=== PATIENT | female | born 1970 | race Caucasian/White ===

== ENCOUNTER 2017-10-19 14:52 | Outpatient (CLI) | payer OTHER | END 2017-10-19 15:02 | disposition home or self-care (01) | LOC: MAMO-SONO 14:52 | DX: N60.11 Diffuse cystic mastopathy of right breast (principal); N60.12 Diffuse cystic mastopathy of left breast; Z12.31 Encounter for screening mammogram for malignant neoplasm of breast ==

== ENCOUNTER 2018-10-24 14:52 | Outpatient (CLI) | payer OTHER | END 2018-10-24 14:54 | disposition home or self-care (01) | LOC: MAMO-SONO 14:52 | DX: N60.11 Diffuse cystic mastopathy of right breast (principal); N60.12 Diffuse cystic mastopathy of left breast; Z12.31 Encounter for screening mammogram for malignant neoplasm of breast ==

== ENCOUNTER 2019-10-29 08:09 | Outpatient (CLI) | payer OTHER | END 2019-10-29 08:19 | disposition home or self-care (01) | LOC: LAB 08:09 | DX: E55.9 Vitamin D deficiency, unspecified (principal); D50.8 Other iron deficiency anemias; E66.3 Overweight; I10 Essential (primary) hypertension ==

== ENCOUNTER 2019-10-29 10:15 | Outpatient (CLI) | payer OTHER | END 2019-10-29 12:09 | disposition home or self-care (01) | LOC: MAMO-SONO 10:15 | DX: N60.11 Diffuse cystic mastopathy of right breast (principal); N60.12 Diffuse cystic mastopathy of left breast; Z12.31 Encounter for screening mammogram for malignant neoplasm of breast ==

== ENCOUNTER 2024-03-01 14:46 | Outpatient (CLI) | payer OTHER | END 2024-03-01 15:09 | disposition home or self-care (01) | LOC: SONOGRAMA 14:46 → MAMO-SONO 14:46 | DX: N60.11 Diffuse cystic mastopathy of right breast (principal); N60.12 Diffuse cystic mastopathy of left breast ==

== ENCOUNTER 2024-06-20 13:03 | Outpatient (CLI) | payer OTHER | END 2024-06-20 13:12 | disposition home or self-care (01) | LOC: RAD 13:03 | PROVIDERS: ATTEND Pulmonary Function Technologist | DX: J45.901 Unspecified asthma with (acute) exacerbation (principal); J45.909 Unspecified asthma, uncomplicated ==

== ENCOUNTER 2025-05-29 14:50 | Outpatient (CLI) | payer OTHER | END 2025-05-29 14:53 | disposition home or self-care (01) | LOC: MAMO-SONO 14:50 | PROVIDERS: ATTEND Obstetrics & Gynecology | DX: N60.11 Diffuse cystic mastopathy of right breast (principal); N60.12 Diffuse cystic mastopathy of left breast; Z12.31 Encounter for screening mammogram for malignant neoplasm of breast ==